=== PATIENT | male | born 1985 | race Caucasian/White ===

== ENCOUNTER 2022-03-21 12:58 | Emergency (ER) | payer MEDICAID, OTHER ==
[2022-03-21 13:22] VITALS: PULSE 77; RESP 20; TEMP 98.9
--- NOTE | 2022-03-21 13:49 | ED ---
Abdominal Pain HPI - General Chief Complaint: Abdominal Pain Stated Complaint: Abd pain Time Seen by Provider: 03/21/22 13:48 Source: patient, RN notes reviewed Mode of arrival: ambulatory Limitations: no limitations - History of Present Illness Initial Comments: 36-year-old male presents emergency from chief complaint of as reflux. This is a chronic ongoing issue. Patient states he is out of his omeprazole. Patient is here for refill. Patient states he had a leave work and needs a work no. He denies any other symptoms denies melanotic stools, diarrhea constipation vomiting chest pain shortness of breath fevers chills back pain and chest pain. - Related Data Previous Rx's Medication Instructions Recorded ALPRAZolam [Xanax] 1 mg PO BID #60 tab 08/25/15 Amitriptyline HCl [Elavil] 75 mg PO HS #120 tab 08/25/15 Gabapentin [Neurontin] 400 mg PO 5XD PRN #120 cap 08/25/15 Methylphenidate HCl [Ritalin] 15 mg PO BID@0800,1300 #120 tab 08/25/15 LORazepam [Ativan] 1 mg PO HS #15 tab 08/27/15 Omeprazole [PriLOSEC] 40 mg PO DAILY #30 cap 03/21/22 Allergies Allergy/AdvReac Type Severity Reaction Status Date / Time No Known Allergies Allergy Verified 08/27/15 15:39 Review of Systems ROS Statement: Those systems with pertinent positive or pertinent negative responses have been documented in the HPI. ROS Other: All systems not noted in ROS Statement are negative. Past Medical History Past Medical History: GERD/Reflux Additional Past Medical History / Comment(s): Hep C, Chronic lumbar back pain and right hip pain History of Any Multi-Drug Resistant Organisms: None Reported Past Surgical History: Hernia Repair Additional Past Surgical History / Comment(s): eye surgery as a child Past Anesthesia/Blood Transfusion Reactions: No Reported Reaction Past Psychological History: Anxiety, Depression Smoking Status: Vaper Past Alcohol Use History: None Reported Past Drug Use History: None Reported, Prescription Drug Abuse - Past Family History Father Family Medical History: Cancer Additional Family Medical History / Comment(s): Father at age 54 from AML. Mother Family Medical History: No Reported History Additional Family Medical History / Comment(s): Mother is age 49 with no major medical problems. Maternal grandfather from pulmonary fibrosis. Brother(s) Additional Family Medical History / Comment(s): He has 1 brother and 1 sister with no major medical problems. He has 2 daughters with no major medical problems. General Exam Limitations: no limitations General appearance: alert, in no apparent distress Head exam: Present: atraumatic, normocephalic, normal inspection Neck exam: Present: normal inspection. Absent: tenderness, meningismus, lymphadenopathy Respiratory exam: Present: normal lung sounds bilaterally. Absent: respiratory distress, wheezes, rales, rhonchi, stridor Cardiovascular Exam: Present: regular rate, normal rhythm, normal heart sounds. Absent: systolic murmur, diastolic murmur, rubs, gallop, clicks GI/Abdominal exam: Present: soft, normal bowel sounds. Absent: distended, tenderness, guarding, rebound, rigid Course Vital Signs 03/21/22 13:18 Temperature 98.9 F Pulse Rate 77 Respiratory 20 Rate O2 Sat by Pulse 95 Oximetry Medical Decision Making - Medical Decision Making Was pt. sent in by a medical professional or institution (VENANCIO Stanley, INVESTMENT ADVISOR, urgent care, hospital, or long-term...) When possible be specific @ -No Did you speak to anyone other than the patient for history (EMS, parent, family, police, friend...)? What history was obtained from this source @ -No Did you review nursing and triage notes (agree or disagree)? Why? @ -I reviewed and agree with nursing and triage notes Were old charts reviewed (outside hosp., previous admission, EMS record, old EKG, old radiological studies, urgent care reports/EKG's, long-term records)? Report findings @ -No old charts were reviewed Differential Diagnosis (chest pain, altered mental status, abdominal pain women, abdominal pain men, vaginal bleeding, weakness, fever, dyspnea, syncope, headache, dizziness, GI bleed, back pain, seizure, CVA, palpatations, mental h ealth)? @ -GERD, gastritis, peptic ulcer disease, diverticulosis, colitis, this is is not all inclusive EKG interpreted by me (3pts min.). @ -None X-rays interpreted by me (1pt min.). @ -None done CT interpreted by me (1pt min.). @ -None done U/S interpreted by me (1pt. min.). @ -None done What testing was considered but not performed or refused? (CT, X-rays, U/S, labs)? Why? @ -Considered labs, imaging patient declined stating this is a chronic issue only wants refill and work no. What meds were considered but not given or refused? Why? @ -None Did you discuss the management of the patient with other professionals (professionals i.e. Dr., PA, INVESTMENT ADVISOR, lab, RT, psych nurse, aids social worker, channel marketing coordinator, teacher, civilian jail officer, machine adjuster leader case trim)? Give summary @ -No Was smoking cessation discussed for >3mins.? @ -No Was critical care preformed (if so, how long)? @ -No Were there social determinants of health that impacted care today? How? (Homelessness, low income, unemployed, alcoholism, drug addiction, transportation, low edu. Level, literacy, decrease access to med. care, skilled nursing, rehab)? @ -No Was there de-escalation of care discussed even if they declined (Discuss DNR or withdrawal of care, Hospice)? DNR status @ -No What co-morbidities impacted this encounter? (DM, HTN, Smoking, COPD, CAD, Cancer, CVA, ARF, Chemo, Hep., AIDS, mental health diagnosis, sleep apnea, morbid obesity)? @ -None Was patient admitted / discharged? Hospital course, mention meds given and route, prescriptions, significant lab abnormalities, going to OR and other pertinent info. @ -Discharged patient has chronic history of reflux. Patient was given prescription for omeprazole. Patient declined any further testing patient requested work no. Undiagnosed new problem with uncertain prognosis? @ -No Drug Therapy requiring intensive monitoring for toxicity (Heparin, Nitro, Insulin, Cardizem)? @ -No Were any procedures done? @ -No Diagnosis/symptom? @ -[GERD Acute, or Chronic, or Acute on Chronic? @ Acute chronic Uncomplicated (without systemic symptoms) or Complicated (systemic symptoms)? @ -Uncomplicated Side effects of treatment? @ -No Exacerbation, Progression, or Severe Exacerbation? @ -Exacerbation Poses a threat to life or bodily function? How? (Chest pain, USA, [place], pneumonia, PE, COPD, DKA, ARF, appy, cholecystitis, CVA, Diverticulitis, Homicidal, Suicidal, threat to staff... and all critical care pts) @ -No Disposition Clinical Impression: Medication refill, GERD (gastroesophageal reflux disease) Disposition: HOME SELF-CARE Condition: Stable Instructions (If sedation given, give patient instructions): GERD (Gastroesophageal Reflux Disease) (ED) Additional Instructions: Please return to the Emergency Department if symptoms worsen or any other concerns. Prescriptions: Omeprazole [PriLOSEC] 40 mg PO DAILY #30 cap Is patient prescribed a controlled substance at d/c from ED?: No Referrals: None,Stated [Primary Care Provider] - 1-2 days Time of Disposition: 13:49
--- NOTE | 2022-03-21 13:53 | XR ---
EXAMINATION TYPE: XR chest 2V DATE OF EXAM: 03/21/2022 1:40 PM COMPARISON: Chest radiographs from 08/13/2015 TECHNIQUE: XR chest 2V Frontal and lateral views of the chest. CLINICAL INDICATION:Male, 36 years old with history of chest pain; FINDINGS: Lungs/Pleura: There is no evidence of pleural effusion, focal consolidation, or pneumothorax. Pulmonary vascularity: Unremarkable. Heart/mediastinum: Cardiomediastinal silhouette is unremarkable. Musculoskeletal: No acute osseous pathology. IMPRESSION: No acute cardiopulmonary disease/process.
== END 2022-03-21 13:58 | disposition home or self-care (01) ==
LOC: EC 12:58
DX: K21.9 Gastro-esophageal reflux disease without esophagitis (principal); F41.9 Anxiety disorder, unspecified; F32.A Depression, unspecified; F17.290 Nicotine dependence, other tobacco product, uncomplicated; Z76.0 Encounter for issue of repeat prescription
CPT/HCPCS: 71046; 93005; 99283

== ENCOUNTER 2022-07-24 12:07 | Emergency (ER) | payer OTHER ==
[2022-07-24 12:25] VITALS: TEMP 97.3
[2022-07-24] MEDS ORDERED: hydrALAZINE HCL 20 MG/ML 1 ML VIAL IVP STA ×3 (13:04→15:22)
[2022-07-24 13:39] LABS: Basophils % (A) 0 %; Eosinophils # (A) 0.2 k/uL (0-0.7); Eosinophils % (A) 2 %; HCT 45.8 % (39.0-53.0); HGB 16.7 gm/dL (13.0-17.5); Hyperchromasia Slight; Lymphocytes % (A) 18 %; MCH 30.6 pg (25.0-35.0); MCHC 36.4 g/dL (31.0-37.0); Mean Platelet Volume 7.9; Monocytes # (A) 0.8 k/uL (0-1.0); Monocytes % (A) 7 %; Neutrophils % (A) 72 %; Platelet Count 245 k/uL (150-450); RBC 5.46 m/uL (4.30-5.90); WBC 11.2 k/uL (3.8-10.6)
[2022-07-24 13:53] LABS: ALT 52 U/L (4-49); AST 48 U/L (17-59); African American GFR (CKD) >90 (>60 ml/min/1.73 sqM); Albumin 4.5 g/dL (3.5-5.0); Alkaline Phosphatase 69 U/L (38-126); Anion Gap 11 mmol/L; Blood Urea Nitrogen 13 mg/dL (9-20); Calcium 9.3 mg/dL (8.4-10.2); Carbon Dioxide 25 mmol/L (22-30); Chloride 103 mmol/L (98-107); Glucose 89 mg/dL (74-99); Non-African American GFR(CKD) >90 (>60 ml/min/1.73 sqM); Potassium 4.1 mmol/L (3.5-5.1); Sodium 139 mmol/L (137-145); Total Bilirubin 0.7 mg/dL (0.2-1.3); Total Protein 7.8 g/dL (6.3-8.2)
--- NOTE | 2022-07-24 14:35 | ED ---
General Adult HPI - General Chief complaint: ENT Stated complaint: sinus/nose problems Time Seen by Provider: 07/24/22 12:30 Source: patient, RN notes reviewed, old records reviewed Mode of arrival: ambulatory Limitations: no limitations - History of Present Illness Initial comments: This is a 37-year-old male presents emergency department complaining some pain inside his nose on the left he states is tender to touch and it seems to radiate down to his cheek after a few days this pain. Patient states he also feels as though it's more swollen inside. Patient denies any fever chills or cough. Patient denies any other symptoms at this time. Patient denies any difficulty breathing or chest pain. Patient denies headache patient denies lightheadedness or dizziness. Patient denies abdominal pain patient denies vomiting or diarrhea. Patient states aside from the pain in the nose she has no complaints. Patient states he sent 2 blood pressure medications but he hasn't taken them for at least 2 weeks. - Related Data Previous Rx's Medication Instructions Recorded ALPRAZolam [Xanax] 1 mg PO BID #60 tab 08/25/15 Amitriptyline HCl [Elavil] 75 mg PO HS #120 tab 08/25/15 Gabapentin [Neurontin] 400 mg PO 5XD PRN #120 cap 08/25/15 Methylphenidate HCl [Ritalin] 15 mg PO BID@0800,1300 #120 tab 08/25/15 LORazepam [Ativan] 1 mg PO HS #15 tab 08/27/15 Omeprazole [PriLOSEC] 40 mg PO DAILY #30 cap 03/21/22 Fluticasone Nasal Frontier [Flonase 1 spray INTRANASAL DAILY #16 gm 07/24/22 Nasal Frontier] Sulfamethox-Tmp 800-160Mg [Bactrim 1 each PO Q12HR #14 tab 07/24/22 DS 800-160 mg] Allergies Allergy/AdvReac Type Severity Reaction Status Date / Time No Known Allergies Allergy Verified 07/24/22 12:25 Review of Systems ROS Statement: Those systems with pertinent positive or pertinent negative responses have been documented in the HPI. ROS Other: All systems not noted in ROS Statement are negative. Past Medical History Past Medical History: GERD/Reflux Additional Past Medical History / Comment(s): Hep C, Chronic lumbar back pain and right hip pain History of Any Multi-Drug Resistant Organisms: None Reported Past Surgical History: Hernia Repair Additional Past Surgical History / Comment(s): eye surgery as a child Past Anesthesia/Blood Transfusion Reactions: No Reported Reaction Past Psychological History: Anxiety, Depression Smoking Status: Vaper Past Alcohol Use History: None Reported Past Drug Use History: None Reported, Prescription Drug Abuse - Past Family History Father Family Medical History: Cancer Additional Family Medical History / Comment(s): Father at age 54 from AML. Mother Family Medical History: No Reported History Additional Family Medical History / Comment(s): Mother is age 49 with no major medical problems. Maternal grandfather from pulmonary fibrosis. Brother(s) Additional Family Medical History / Comment(s): He has 1 brother and 1 sister with no major medical problems. He has 2 daughters with no major medical problems. General Exam - General Exam Comments Initial Comments: GENERAL: Patient is well-developed and well-nourished. Patient is nontoxic and well- hydrated and is in mild distress. ENT: Neck is soft and supple. No significant lymphadenopathy is noted. Oropharynx is clear. Nose is tender on the left side inside does appear to be some fullness. Moist mucous membranes. Neck has full range of motion without el iciting any pain. EYES: The sclera were anicteric and conjunctiva were pink and moist. Extraocular movements were intact and pupils were equal round and reactive to light. Eyelids were unremarkable. PULMONARY: Unlabored respirations. Good breath sounds bilaterally. No audible rales rhonchi or wheezing was noted. CARDIOVASCULAR: There is a regular rate and rhythm without any murmurs gallops or rubs. ABDOMEN: Soft and nontender with normal bowel sounds. SKIN: Skin is clear with no lesions or rashes and otherwise unremarkable. NEUROLOGIC: Patient is alert and oriented x3. Cranial nerves II through XII are grossly intact. Motor and sensory are also intact. Normal speech, volume and content. Symmetrical smile. MUSCULOSKELETAL: Normal extremities with adequate strength and full range of motion. LYMPHATICS: No significant lymphadenopathy is noted PSYCHIATRIC: Normal psychiatric evaluation. Limitations: no limitations Course Vital Signs 07/24/22 07/24/22 07/24/22 12:22 13:42 14:29 Temperature 97.3 F L Pulse Rate 68 59 L Respiratory 16 Rate Blood Pressure 184/119 194/123 181/79 O2 Sat by Pulse 97 Oximetry 07/24/22 15:21 Temperature Pulse Rate 70 Respiratory 18 Rate Blood Pressure 179/93 O2 Sat by Pulse Oximetry Medical Decision Making - Medical Decision Making EKG as interpreted by myself EKG shows a sinus rhythm at 60 bpm IL interval 262 QRS 104 QTC is 422 QTC is 422. Patient's EKG shows no ST segment elevation or depression. Was pt. sent in by a medical professional or institution (, VENANCIO, RECEPTION CENTRE MANAGER, urgent care, hospital, or fci...) When possible be specific @ -[No] Did you speak to anyone other than the patient for history (EMS, parent, family, police, friend...)? What history was obtained from this source @ -[No] Did you review nursing and triage notes (agree or disagree)? Why? @ -[I reviewed and agree with nursing and triage notes] Were old charts reviewed (outside hosp., previous admission, EMS record, old EKG, old radiological studies, urgent care reports/EKG's, fci records)? Report findings @ -[No old charts were reviewed] Differential Diagnosis (chest pain, altered mental status, abdominal pain women, abdominal pain men, vaginal bleeding, weakness, fever, dyspnea, syncope, headache, dizziness, GI bleed, back pain, seizure, CVA, palpatations, mental health, musculoskeletal)? @ -Nasal abscess, URI, irritated turbinates this is not LISTED EKG interpreted by me (3pts min.). @ -[As above] X-rays interpreted by me (1pt min.). @ -[None done] CT interpreted by me (1pt min.). @ -[None done] U/S interpreted by me (1pt. min.). @ -[None done] What testing was considered but not performed or refused? (CT, X-rays, U/S, labs)? Why? @ -[None] What meds were considered but not given or refused? Why? @ -[None] Did you discuss the management of the patient with other professionals (professionals i.e. , VENANCIO, RECEPTION CENTRE MANAGER, lab, RT, psych nurse, secondary social studies teacher, dredge operator supervisor, teacher, community chest officer, mental health case manager)? Give summary @ -[No] Was smoking cessation discussed for >3mins.? @ -[No] Was critical care preformed (if so, how long)? @ -[No] Were there social determinants of health that impacted care today? How? (Homelessness, low income, unemployed, alcoholism, drug addiction, transportation, low edu. Level, literacy, decrease access to med. care, custodial, rehab)? @ -[No] Was there de-escalation of care discussed even if they declined (Discuss DNR or withdrawal of care, Hospice)? DNR status @ -[No] What co-morbidities impacted this encounter? (DM, HTN, Smoking, COPD, CAD, Cancer, CVA, ARF, Chemo, Hep., AIDS, mental health diagnosis, sleep apnea, morbid obesity)? @ -[None] Was patient admitted / discharged? Hospital course, mention meds given and route, prescriptions, significant lab abnormalities, going to OR and other pertinent info. @ -Admits that he has 2 blood pressure medications at home and he hasn't taken for at least 2 weeks. Patient blood pressure was elevated in the emergency department patient was given hydralazine on 2 different occasions and Ativan because he is quite anxious and his blood pressure came down nicely. Patient states she will start taking his blood pressure medications as prescribed. Patient remained asymptomatic aside from the pain on the left side of his nose. Undiagnosed new problem with uncertain prognosis? @ -[No] Drug Therapy requiring intensive monitoring for toxicity (Heparin, Nitro, Insulin, Cardizem)? @ -[No] Were any procedures done? @ -[No] Diagnosis/symptom? @ -Nasal abscess Acute, or Chronic, or Acute on Chronic? @ -Acute Uncomplicated (without systemic symptoms) or Complicated (systemic symptoms)? @ -Uncomplicated Side effects of treatment? @ -No Exacerbation, Progression, or Severe Exacerbation? @ -[No] Poses a threat to life or bodily function? How? (Chest pain, USA, [place], pneumonia, PE, COPD, DKA, ARF, appy, cholecystitis, CVA, Diverticulitis, Homicidal, Suicidal, threat to staff... and all critical care pts) @ -Hypertension Diagnosis/symptom? @ -Hypertensive urgency Acute, or Chronic, or Acute on Chronic? @ -Acute Uncomplicated (without systemic symptoms) or Complicated (systemic symptoms)? @ -Complicated Side effects of treatment? @ -[none] Exacerbation, Progression, or Severe Exacerbation] @ -[no] Poses a threat to life or bodily function? @ -Yes this could lead to hypertensive emergency and possible morbidity mortality - Lab Data Result diagrams: 07/24/22 13:12 07/24/22 13:12 Lab Results 07/24/22 07/24/22 07/24/22 Range/Units 13:12 13:12 13:12 WBC 11.2 H (3.8-10.6) k/uL RBC 5.46 (4.30-5.90) m/uL Hgb 16.7 (13.0-17.5) gm/dL Hct 45.8 (39.0-53.0) % MCV 84.0 (80.0-100.0) fL MCH 30.6 (25.0-35.0) pg MCHC 36.4 (31.0-37.0) g/dL RDW 13.0 (11.5-15.5) % Plt Count 245 (150-450) k/uL MPV 7.9 Neutrophils % 72 % Lymphocytes % 18 % Monocytes % 7 % Eosinophils % 2 % Basophils % 0 % Neutrophils # 8.0 H (1.3-7.7) k/uL Lymphocytes # 2.0 (1.0-4.8) k/uL Monocytes # 0.8 (0-1.0) k/uL Eosinophils # 0.2 (0-0.7) k/uL Basophils # 0.0 (0-0.2) k/uL Hyperchromasia Slight Sodium 139 (137-145) mmol/L Potassium 4.1 (3.5-5.1) mmol/L Chloride 103 (98-107) mmol/L Carbon Dioxide 25 (22-30) mmol/L Anion Gap 11 mmol/L BUN 13 (9-20) mg/dL Creatinine 0.84 (0.66-1.25) mg/dL Est GFR (CKD-EPI)AfAm >90 (>60 ml/min/1.73 sqM) Est GFR (CKD-EPI)NonAf >90 (>60 ml/min/1.73 sqM) Glucose 89 (74-99) mg/dL Calcium 9.3 (8.4-10.2) mg/dL Magnesium 2.0 (1.6-2.3) mg/dL Total Bilirubin 0.7 (0.2-1.3) mg/dL AST 48 (17-59) U/L ALT 52 H (4-49) U/L Alkaline Phosphatase 69 (38-126) U/L Troponin I <0.012 (0.000-0.034) ng/mL Total Protein 7.8 (6.3-8.2) g/dL Albumin 4.5 (3.5-5.0) g/dL Disposition Clinical Impression: Hypertensive urgency, Nasal abscess Disposition: HOME SELF-CARE Instructions (If sedation given, give patient instructions): Abscess (ED), Hypertension (ED) Additional Instructions: Patient should follow-up with ENT if the pain in the nose doesn't get any better or if there are any new or worsening symptoms. Patient should start taking his blood pressure medications as prescribed he states he has to medications both should be started again tomorrow and that he needs to follow up with a primary medical care doctor to get his blood pressure under control long-term patient to return to the emergency department as any chest pain or difficulty breathing or any new symptoms. Prescriptions: Sulfamethox-Tmp 800-160Mg [Bactrim DS 800-160 mg] 1 each PO Q12HR #14 tab Fluticasone Nasal Frontier [Flonase Nasal Frontier] 1 spray INTRANASAL DAILY #16 gm Is patient prescribed a controlled substance at d/c from ED?: No Referrals: None,Stated [Primary Care Provider] - 1-2 days Time of Disposition: 15:43
[2022-07-24] MEDS ORDERED: LORazepam 2 MG/ML INJ IV STA ×2 (14:39→15:22)
[2022-07-24 15:22] VITALS: BP 179/93; PULSE 70; RESP 18
== END 2022-07-24 16:00 | disposition home or self-care (01) ==
LOC: EC 12:07
DX: I16.0 Hypertensive urgency (principal); J32.9 Chronic sinusitis, unspecified; F17.290 Nicotine dependence, other tobacco product, uncomplicated; F15.90 Other stimulant use, unspecified, uncomplicated
CPT/HCPCS: 36415; 93005; 80053; 83735; 84484; 85025; 99284; 96374; 96375; 96376; J2060; J0360